=== PATIENT | female | born 1935 | race Caucasian/White ===

== ENCOUNTER 2018-07-29 11:22 | Outpatient (CLI) | payer MEDICARE, BC ==
--- NOTE | 2018-07-29 12:00 | RAD ---
LEFT KNEE FOUR VIEWS: HISTORY: Knee pain. FINDINGS: Degenerative changes are present. No fracture, dislocation, or bony destruction is identified. IMPRESSION: Left knee osteoarthritis. POS: [facility]
--- NOTE | 2018-07-29 12:01 | RAD ---
RIGHT KNEE FOUR VIEWS: HISTORY: Right knee pain. FINDINGS: Degenerative changes are seen, most prominent in the medial tibiofemoral joint. No fracture, disloca tion, or bony destruction is identified. IMPRESSION: Right knee osteoarthritis. POS: [facility]
== END 2018-07-29 11:23 | disposition home or self-care (01) ==
LOC: BICRAD 11:22
PROVIDERS: ATTEND Internal Medicine
DX: M25.561 Pain in right knee (principal); M25.562 Pain in left knee; M17.0 Bilateral primary osteoarthritis of knee

== ENCOUNTER 2018-09-23 10:20 | Outpatient (CLI) | payer MEDICARE, BC ==
--- NOTE | 2018-09-23 12:55 | BD ---
DEXA BONE DENSITY STUDY: INDICATIONS: An 82-year-old female with a history of asymptomatic menopausal state. LUMBAR SPINE BMD (g/cm2) T-SCORE L1 1.303 2.8 L2 1.493 4.2 L3 1.401 2.9 L4 1.192 1.2 TOTAL 1.333 2.6 Findings within normal limits with no increased risk for fracture, although these measurements may be somewhat spuriously high because of sclerosis, particularly of L1, L2, and L3. FEMORAL NECK 0.970 +1.1 TOTAL 1.146 2.7 Findings within normal limits with no increased risk for fracture. FRAX score not reported because all T-scores are at or above -1.0. POS: [facility]
== END 2018-09-23 10:21 | disposition home or self-care (01) ==
LOC: BICMAMMO 10:20
PROVIDERS: ATTEND Internal Medicine
DX: Z13.820 Encounter for screening for osteoporosis (principal); Z78.0 Asymptomatic menopausal state
CPT/HCPCS: 77080

== ENCOUNTER 2020-06-27 11:31 | Outpatient (CLI) | payer MEDICARE ==
--- NOTE | 2020-06-27 13:15 | RAD ---
RIGHT HAND 3 VIEWS: Date: 06/27/2020 HISTORY: Injury of the right hand, pain at third carpal. FINDINGS/IMPRESSION: Degenerative changes are present. No definite fracture or dislocation seen. POS: [facility]
--- NOTE | 2020-06-27 13:15 | RAD ---
RIGHT MIDDLE FINGER 3 VIEWS: Date: 06/27/2020 HISTORY: Injury and pain right middle finger. FINDINGS/IMPRESSION: No acute fracture or dislocation is seen. 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 POS: [facility]
== END 2020-06-27 11:32 | disposition home or self-care (01) ==
LOC: BICRAD 11:31
PROVIDERS: ATTEND Internal Medicine
DX: S69.91XA Unspecified injury of right wrist, hand and finger(s), initial encounter (principal); M19.041 Primary osteoarthritis, right hand

== ENCOUNTER 2021-10-11 08:36 | Outpatient (CLI) | payer MEDICARE | END 2021-10-11 08:37 | disposition home or self-care (01) | LOC: BICRAD 08:36 | PROVIDERS: ATTEND Physician Assistant | DX: R05.9 Cough, unspecified (principal) | CPT/HCPCS: 71046 ==

== ENCOUNTER 2022-01-04 10:32 | Outpatient (CLI) | payer BC, MEDICARE | END 2022-01-04 10:33 | disposition home or self-care (01) | LOC: BICRAD 10:32 | PROVIDERS: ATTEND Internal Medicine | DX: M25.562 Pain in left knee (principal); M25.462 Effusion, left knee ==

== ENCOUNTER 2022-07-26 11:17 | Outpatient (CLI) | payer MEDICARE | END 2022-07-26 11:18 | disposition home or self-care (01) | LOC: BICRAD 11:17 | PROVIDERS: ATTEND Internal Medicine | DX: R06.00 Dyspnea, unspecified (principal) | CPT/HCPCS: 71046 ==

== ENCOUNTER 2023-07-30 09:56 | Outpatient (CLI) | payer MEDICARE | END 2023-07-30 09:57 | disposition home or self-care (01) | LOC: BICRAD 09:56 | PROVIDERS: ATTEND Internal Medicine | DX: R06.00 Dyspnea, unspecified (principal) | CPT/HCPCS: 71046 ==

== ENCOUNTER 2024-03-05 10:37 | Outpatient (CLI) | payer MEDICARE ==
[2024-03-05 13:10] LABS: #Basophils 0.03 10x3/uL (0.0-0.2); #Eosinphils 0.07 10x3/uL (0.0-0.5); #Monocytes 0.45 10x3/uL (0.0-1.1); #Neutrophils 3.76 10x3/uL (1.5-8.4); %Basophils 0.5 % (0.0-2.0); %Eosinophils 1.1 % (0.0-6.0); %Lymphocytes 30.7 % (18.0-47.0); %Monocytes 7.2 % (0.0-10.0); %Neutrophils 60.2 % (40.0-75.0); Hematocrit 39.5 % (34.9-44.5); Hemoglobin 13.7 g/dL (12.0-15.5); Mean Corpuscular HGB CONC 34.7 g/dL (32.0-36.0); Mean Corpuscular Hemoglobin 32.1 pg (27.0-33.0); Mean Corpuscular Volume 92.5 fL (81.6-98.3); Mean Platelet Volume 12.6 fL (7.4-10.4); Platelet Count 147 10x3/uL (150-450); RBC Distribution Width 13.2 % (11.5-14.5); Red Blood Cell (RBC) Count 4.27 10x6/uL (3.90-5.03); White Blood Cell (WBC) Count 6.3 10x3/uL (3.5-10.5)
== END 2024-03-05 10:38 | disposition home or self-care (01) ==
LOC: LABBT 10:37
PROVIDERS: ATTEND Orthopaedic Surgery Hand Surgery
DX: Z01.818 Encounter for other preprocedural examination (principal); G56.01 Carpal tunnel syndrome, right upper limb
CPT/HCPCS: 85025; 93005; 93010

== ENCOUNTER 2024-03-09 11:32 | Day surgery (SDC) | payer MEDICARE ==
[2024-03-05 11:30] VITALS: BMI 27.6
[2024-03-09] MEDS ORDERED: Bupivacaine PF 0.5% 30 ML VIAL ONE (13:36)
[2024-03-09] MEDS ORDERED: Bacitracin Zinc Ointment 30 gm TUBE ONE (13:36)
[2024-03-09] MEDS ORDERED: CEFAZOLIN 2 GM VIAL ONE (14:07)
[2024-03-09] MEDS ORDERED: Sodium Chloride 0.9% 100 ML ONE (14:07)
[2024-03-09] MEDS ORDERED: PROPOFOL 20 ML ONE (14:22)
[2024-03-09] MEDS ORDERED: fentaNYL PF 100 MCG/2 ML SYRINGE ONE (14:22)
[2024-03-09] MEDS ORDERED: Dexamethasone 20 MG/5 ML VIAL ONE (14:35)
[2024-03-09] MEDS ORDERED: Ondansetron PF 4 MG/2 ML Vial ONE (14:42)
[2024-03-09] MEDS ORDERED: Ketorolac Tromethamine 30 MG (1 mL) VIAL ONE (15:24)
== END 2024-03-09 17:10 | disposition home or self-care (01) ==
LOC: SDC 11:32
PROVIDERS: ATTEND Orthopaedic Surgery Hand Surgery
PROC: 01N50ZZ Release Median Nerve, Open Approach (ICD-10-PCS; principal; 2024-03-09)
DX: G56.01 Carpal tunnel syndrome, right upper limb (principal); M18.11 Unilateral primary osteoarthritis of first carpometacarpal joint, right hand; I10 Essential (primary) hypertension; Z90.710 Acquired absence of both cervix and uterus; Z95.0 Presence of cardiac pacemaker; Z88.5 Allergy status to narcotic agent; Z79.82 Long term (current) use of aspirin; Z79.899 Other long term (current) drug therapy
CPT/HCPCS: 64721; A6223; J0665; J1100; J1885; J2405; J2704; J3490